=== PATIENT | male | born 1985 | race Caucasian/White ===

== ENCOUNTER → 2023-09-07 06:35 | Outpatient (REF) | payer OTHER, SELFPAY | LOC: MRI 3T 06:35 | PROVIDERS: ATTENDING PHYSICIAN Orthopaedic Surgery; FAMILY PHYSICIAN Internal Medicine | DX: M25.522 Pain in left elbow (principal) | CPT/HCPCS: 73221 ==

== ENCOUNTER 2024-05-05 06:18 | Inpatient (IN) | payer OTHER, SELFPAY ==
[2024-05-05] VITALS (21 sets, daily range): BP systolic 122–151; BP diastolic 62–100; BMI 34.9; BMI 35.0
--- NOTE | 2024-05-05 02:26 | ED.GENMED ---
History of Present Illness
General
Chief Complaint: Weakness
Source: patient and family
Exam Limitations: none
Time Seen by Provider: 05/05/24 02:23
History of Present Illness
History of Present Illness:
Pleasant 39-year-old male presents to the emergency department with vomiting and dyspnea. Patient awakened after his 39th birthday alliance party celebration feeling like the room was spinning. He does have body aches and weakness. Patient has been
training for a bodybuilding event lately. According to his training logs, he has been burning 'about 1000 josie/h 'recently. Patient has been celebrating for his birthday as well. Tonight he developed nausea and vomiting and could not keep anything
down. Denies fever but does report some chills. Denies chest pain or shortness of breath.
Past History
Past History
ED Past Medical History: None
ED Past Surgical History: None
Social History
Tobacco: Non-smoker
Alcohol: None
Drug: None
Living: with family
Phy Exam
General Physical Exam
General Presentation: moderate distress
General age: appears stated age
General Skin: warm and diaphoretic
General Habitus: normal
General Mental: alert and usual mental status
General Hydration: appears well hydrated
Cardiovascular Exam
Cardiovascular Exam: regular rate/rhythm and no edema
Pulmonary Exam
Pulmonary Exam: lungs clear, no respiratory distress, no rales, chest non tender, no crackles, no rhonchi, no stridor, no wheezing and no cough
Neurological Exam
Neurological Exam: alert and oriented x3
Musculoskeletal Exam
Musculoskeletal Exam: full ROM, no edema and neuro vasc intact
Skin Exam
Skin Exam: normal color and diaphoresis
Course
Orders/Labs/Results
Orders:
Orders
05/05/24 02:21
Ondansetron Injectable [Zofran] 4 mg .ROUTE .[facility]
05/05/24 02:23
Urinalysis Reflex To Culture Urgent
0.9% Sodium Chloride 1000 ml [Nss] 1,000 ml IV BOLUS
05/05/24 02:29
Ondansetron Injectable [Zofran] 4 mg IV NOW STA
05/05/24 02:33
CT Head W/o Iv Contrast Urgent
Comment:
Reason For Exam: confusion
Drug Screen, Urine [Urine Drug Abuse Screen] Urgent
05/05/24 02:35
Acetaminophen Urgent
Alcohol Urgent
COVID-19 Antigen Urgent
Source: Nasal Swab
Complete Blood Count/With Diff Urgent
Comprehensive Metabolic Panel Urgent
Creatine Phosphokinase Urgent
Comment: ADD ON
Lactic Acid Urgent
Lipase Urgent
PTT Urgent
Prothrombin Time Urgent
Salicylate Urgent
Troponin I Urgent
Influenza A+B Rapid Molecular Urgent
JAN Source: Nasal Swab
Specimen Description:
05/05/24 03:02
Diphenhydramine [Benadryl] 12.5 mg IV NOW STA
Metoclopramide [Reglan] 10 mg IV NOW STA
05/05/24 03:36
Add On- LAB Urgent
Tests Added?: cpk
05/05/24 03:44
0.9% Sodium Chloride 1000 ml [Nss] 1,000 ml IV BOLUS
05/05/24 03:45
0.9% Sodium Chloride 1000 ml [Nss] 1,000 ml IV 1,000 mls/hr
05/05/24 04:24
Acetaminophen 1000MG/100Ml [Ofirmev] 1,000 mg in 100 ml IV ONCE
Acetaminophen IV Indication:: ED Narcotic Naive Pt-ONCE
05/05/24 05:10
Lactate Level [Lactic Acid] Urgent
Comment: .
05/05/24 05:15
0.9% Sodium Chloride 1000 ml [Nss] 1,000 ml IV 100 mls/hr
Abnormal Lab Results
05/05/24
02:35
RBC 4.67 L 10^6/uL
(4.70-6.10)
MCH 31.3 H pg
(27.0-31.0)
MPV 10.8 H fL
(7.4-10.4)
Absolute Lymphs (auto) 3.7 H 10^3/uL
(1.2-3.4)
Absolute Monos (auto) 0.9 H 10^3/uL
(0.1-0.6)
Neutrophils % 37.8 L %
(42.2-75.2)
Monocytes % 11.4 H %
(1.7-9.3)
Potassium 3.2 L mmol/L
(3.5-5.1)
Chloride 109 H mmol/L
(98-107)
Carbon Dioxide 18 L mmol/L
(22-30)
BUN 23 H mg/dl
(9-20)
Glucose 150 H mg/dl
(70-99)
Lactic Acid 5.0 H* mmol/L
(0.7-2.0)
Creatine Kinase 580 H U/L
(55-170)
Salicylates < 1.0 L mg/dl
(2.0-20.0)
Acetaminophen < 10 L ug/ml
(10-30)
05/05/24 02:35
05/05/24 02:35
Vital Signs
Initial and Last Documented VS:
Initial Vital Signs
Temp Pulse Resp BP Pulse Ox
97.2 F 64 16 135/83 99
05/05/24 02:24 05/05/24 02:24 05/05/24 02:24 05/05/24 02:24 05/05/24 02:24
Last Documented Vital Signs
Temp Pulse Resp BP Pulse Ox
97.2 F 57 20 145/75 97
05/05/24 02:24 05/05/24 03:27 05/05/24 03:27 05/05/24 03:27 05/05/24 03:27
*Radiology
Radiology exam reviewed: radiology read reviewed
*Pulse Oximetry
Patient hypoxic: no
*EKG
Interpreted by ED Provider?: Yes
EKG Intrepretation Date: 05/05/24
Interpretation: normal
Heart Rate: 50
Rhythm: sinus
[place]: normal axis
Interval: normal interval
QRS Pattern: normal QRS and right bundle branch block
*Fur Remodeler Interpretation
Rate: normal
Interpretation: normal
Heart Rate: 50
*Critical Care Note
Total Time (30-74mins, 75-104mins- exclusive of procedures): Not Applicable
ED Attending Note
-
Portions of this chart may have been created with voice recognition software.� Occasional wrong word or��sound alike� substitutions may have occurred due to the inherent limitations of voice recognition software.
Discharge Plan
Departure
Patient Disposition: Admit
Date of Disposition: 05/05/24
Time of Disposition: 05:16
Admit to: Telemetry
Presentation/result/management discussed w/ accepting MD/DO: Hospitalist
Discharge Problem:
Rhabdomyolysis, Nausea & vomiting, Acute dehydration
Prescriptions:
No Action
Prilosec OTC
20 mg PO DAILY
Referrals:
[facility], [Other]
UNKNOWN - PT DOES,NOT KNOW [Family Provider] -
Interventions
Interventions:
*Risk Screen - Suicide Last Done: 05/05/24 02:24
*General Assessment Last Done: 05/05/24 02:24
*Neglect/Abuse Screening Last Done: 05/05/24 02:24
ED- Fall Risk Assessment Last Done: 05/05/24 03:27
*ED COVID-19 Vaccine History Last Done: 05/05/24 02:24
ED- Cardiac Assessment Last Done: 05/05/24 03:27
ED- Neurological Assessment Last Done: 05/05/24 03:27
ED- Pulmonary Assessment Last Done: 05/05/24 03:27
Discharge Date and Time
Print Language: GREEK
[2024-05-05] MEDS: ZOFRAN 4 MG IV (02:30)
[2024-05-05] MEDS: NSS 1000 IV ×3 (02:31→05:12)
[2024-05-05 02:50] LABS: % Basophils 0.4 % (0-2); % Eosinophils 2.5 % (0-6); % Immature Granulocytes 0.4 % (0-0.5); % Lymphocytes 47.5 % (20.5-51.1); % Monocytes 11.4 % (1.7-9.3); % Neutrophils 37.8 % (42.2-75.2); Absolute Eosinophils 0.2 10^3/uL (0-0.7); Absolute Lymphocytes 3.7 10^3/uL (1.2-3.4); Absolute Monocytes 0.9 10^3/uL (0.1-0.6); Absolute Neutrophils 2.9 10^3/uL (1.4-6.5); Hemoglobin 14.6 g/dL (13.0-18.0); Mean Corp Hgb Conc. 36.5 g/dL (33.0-37.0); Mean Corpuscular Hgb 31.3 pg (27.0-31.0); Mean Corpuscular Volume 85.7 fL (80.0-94.0); Mean Platelet Volume 10.8 fL (7.4-10.4); Nucleated Red Blood Cells % 0 % (-); Platelet Count 201 10^3/uL (130-400); Red Blood Cell Count 4.67 10^6/uL (4.70-6.10); Red Cell Dist. Width 11.8 % (11.5-14.5); White Blood Cell Count 7.7 10^3/uL (4.8-10.8)
[2024-05-05 03:06] LABS: ALT (SGPT) 36 U/L (0-50); AST (SGOT) 43 U/L (17-59); Acetaminophen < 10 ug/ml (10-30); Alkaline Phosphatase 89 U/L (38-126); Blood Urea Nitrogen 23 mg/dl (9-20); Calcium 9.7 mg/dl (8.4-10.2); Carbon Dioxide 18 mmol/L (22-30); Chloride 109 mmol/L (98-107); Estimated Creatinine Clearance 115 ml/min; Glucose 150 mg/dl (70-99); Lipase 105 U/L (23-300); Potassium 3.2 mmol/L (3.5-5.1); Salicylate < 1.0 mg/dl (2.0-20.0); Sodium 142 mmol/L (135-145); Total Bilirubin 0.3 mg/dl (0.2-1.3); Total Protein 6.7 g/dl (6.3-8.2); eGFR > 60.00
[2024-05-05] MEDS: REGLAN 10 MG IV (03:08)
[2024-05-05] MEDS: BENADRYL 12.5 MG IV (03:08)
[2024-05-05 03:18] LABS: Troponin I < 0.012 ng/ml
[2024-05-05 03:29] LABS: Alcohol None Detected
[2024-05-05 03:31] LABS: COVID-19 Antigen Negative (Negative)
[2024-05-05 03:45] LABS: PT 11.4 Sec (11.4-14.6)
[2024-05-05 03:47] LABS: APTT 23.4 Sec (23.4-35.0)
[2024-05-05 04:09] LABS: Creatine Phosphokinase 580 U/L (55-170)
[2024-05-05] MEDS: OFIRMEV 100 IV (04:28)
[2024-05-05 05:32] LABS: Lactic Acid 1.7 mmol/L (0.7-2.0)
--- NOTE | 2024-05-05 06:06 | HPS.HSE ---
Family Physician
-
Family Physician: NOT KNOW UNKNOWN - PT DOES
Chief Complaint
-
Dizziness, N/V
History of Present Illness
Patient is a 39y M with PMH significant for GERD who presents to ED complaining of dizziness with N/V. History obtained from patient and his family at the bedside. 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 This is not
new and has been his typical routine for over a year.
Last PM he went out to celebrate his 39th birthday. He had several beers. No hard alcohol. He was not overtly intoxicated according to his and they returned home, opened presents and eventually went to bed with patient feeling fairly well at
that time.
Patient then woke around 1AM with room spinning sensation. He broke into a cold sweat and had multiple episodes of non-bloody emesis. His symptoms did not improve and patient was brought to the ED for further evaluation.
Patient states that he has not opened his eye in hours as that makes his symptoms worse. He describes a room spinning sensation with eyes open with severe nausea. He states that he has been 'leaning to left' since waking at 1 AM.
Medical History
Past Medical History
Past Medical History: Reports Other
Additional Past Medical History:
GERD
Past Surgical History: Reports Other
Additional Past Surgical History:
Pilonidal Cyst
Right ACL Repair
Left Biceps Tendon Repair
T&A
Social History
Tobacco: Non-smoker
Alcohol: Occasional
Drug: None
Personal:
Living: With Family
Family History
Family History: Not pertinent
Allergies / Home Medications
Allergies reflects when Allergies were last updated in [facility].
Home Medications with original date entered in [facility]
Allergy/Medication List:
Allergies
Allergy/AdvReac Type Severity Reaction Status Date / Time
No Known Allergies Allergy Unverified 05/05/24 04:40
Home Medications
Prilosec OTC 20 mg PO DAILY 05/05/24
Review of Systems
-
History Source: Patient
A 12 point ROS was completed and negative except as noted: Yes
Constitutional: Reports Fatigue; Denies Fever or Chills
EENT: Denies Sore Throat
Respiratory: Denies Cough or Trouble Breathing
Cardiac: Reports Diaphoresis; Denies Chest Pain or Palpitations
Abdomen/GI: Reports Nausea and Vomiting; Denies Abdominal Pain or Diarrhea
: Denies Dysuria or Frequency
Musculoskeletal: Denies Joint Pain or Edema
Neurological: Reports Dizzy and Headache
Psych: Denies Depression or Anxiety
Physical Exam
Vital Signs
Vital Signs
Temp Pulse Resp BP Pulse Ox
97.2 F 70 16 122/67 100
05/05/24 02:24 05/05/24 05:30 05/05/24 05:30 05/05/24 05:00 05/05/24 05:30
Physical Exam
General: Other (Ill-appearing 39y M.)
HEENT: Moist mucous membranes, PERRLA and Other (Pos horiztonal nystagmus with eyes open.)
Respiratory: Clear; No Wheezes, Rales or Rhonchi
Cardiac: S1/S2 and Regular Rhythm; No Murmur
GI: Soft, Non Tender, Non Distended and Normal Bowel Sounds
Musculoskeletal: No Clubbing, No Cyanosis and No Edema
Neuro: AO x 3 and Nonfocal/grossly intact
Laboratory Results
-
05/05/24 02:35
05/05/24 02:35
Laboratory Results
PT 11.4 Sec (11.4-14.6) 05/05/24 02:35
INR 0.80 05/05/24 02:35
APTT 23.4 Sec (23.4-35.0) 05/05/24 02:35
Lactic Acid 1.7 mmol/L (0.7-2.0) 05/05/24 05:14
Total Bilirubin 0.3 mg/dl (0.2-1.3) 05/05/24 02:35
AST 43 U/L (17-59) 05/05/24 02:35
ALT 36 U/L (0-50) 05/05/24 02:35
Alkaline Phosphatase 89 U/L (38-126) 05/05/24 02:35
Troponin I < 0.012 ng/ml 05/05/24 02:35
Lipase 105 U/L (23-300) 05/05/24 02:35
Impression/Plan
-
A/P: Patient is a 39y M with PMH significant for GERD who presents to ED complaining of headache, dizziness and N/V.
Intractable Vertigo
- Admit for further evaluation and treatment.
- Woke with dizziness, room spinning, headache and multiple episodes of N/V.
- Symptoms persist and will try dose of Valium now and follow for improvement.
- IVF support, antiemetics, etc.
- PT / Vestibular therapy eval in the AM.
- CT head was unremarkable in the ED. Check MRI in AM.
- Follow for improvement and / or new or worsening symptoms.
- Note that EtOH level was undetectable and seems unlikely that EtOH intake last PM is sole cause of current presentation.
Lactic Acidosis
- Likely secondary to volume losses / intractable N/V.
- Initial lactate level was 5 and now improved to 1.7 after IVFs.
- Continue IVFs.
- Continue to follow labs / lytes for changes.
Abnormal CPK
- Mild rhabdo with CPK elevation @ 580.
- Patient with regular strenuous exercise and weight lifting.
- Need UA to assess for pigment nephropathy - this was ordered.
- Renal function grossly normal.
- Follow for changes in level with IVF support.
- Again, doubt this is directly related to his current presentation.
Hypokalemia
- Likely secondary to GI losses / emesis.
- Add KCl to IVFs and follow for improvement.
GERD
- Stable. Continue PPI.
DVT Prophylaxis: SCDs
Code Status: Full
[2024-05-05] MEDS: VALIUM INJECTION 5 MG IV (06:11)
[2024-05-05 07:30] LABS: Urine Albumin Negative (Neg - Trace); Urine Bilirubin Negative (Negative); Urine Character Clear (Clear); Urine Color Yellow; Urine Glucose Negative (Negative); Urine Ketone Negative (Negative); Urine Leukocyte Negative (Negative); Urine Nitrite Negative (Negative); Urine Occult Blood Negative (Negative); Urine Specific Gravity 1.015 (<1.030); Urine Urobilinogen Negative (Neg - 1+)
[2024-05-05 07:53] LABS: Amphetamines Negative (Negative); Barbiturates Negative (Negative); Benzodiazepines Negative (Negative); Buprenorphine Negative (Negative); Cocaine Negative (Negative); Marijuana Negative (Negative); Methadone Negative (Negative); Methamphetamines Negative (Negative); Opiates Negative (Negative); Phencyclidine Negative (Negative); Tricyclic Antidepressants Negative (Negative)
--- NOTE | 2024-05-05 08:55 | EDRN ---
Patient taken to room 319-1 on stretcher on monitor with NSS infusing.
[2024-05-05] MEDS: TYLENOL 650 MG PO ×3 (09:27→23:19)
[2024-05-05] MEDS: ANTIVERT 25 MG PO (09:27)
[2024-05-05] MEDS: PROTONIX 40 MG PO (09:30)
[2024-05-05] MEDS: NSS with KCL 40 MEQ 1000 IV ×2 (09:33→23:20)
[2024-05-05 10:08] LABS: TSH Reflex To Free T4 1.22 uIU/ml (0.47-4.68)
--- NOTE | 2024-05-05 12:11 | W.PN.UPDATE ---
Addendum entered and electronically signed by Royce Medrano MD 05/05/24 14:18:
[facility] transfer ordered per neuro request
Cardio consultation placed for DIVINA
Addendum entered and electronically signed by Royce Medrano MD 05/05/24 13:43:
MRI brain showing right cerebellar CVA
Neuro consulted
CTA head and neck ordered
Have h/o of VSD - closed when was young -distribution of stroke makes it less likely cardioembolic
Echocardiogram ordered
If CTA/echocardiogram does not explain stroke will require hypercoagulability workup with hematology -of note I have asked patient if patient uses any testosterone/male hormonal inj - patient declined .
Original Note:
Update Note
Progress Note Update
Nonbillable note
Acute vertigo -MRI brain report pending. Maintain on symptomatic care with Antivert. May need dose of Valium/steroid if symptoms get worse. PT/vestibular assessment ordered
Rhabdomyolysis - minimal CPK elevation. From exercise and alcohol use related. maintain on IVF.
Metabolic acidosis - from rhabdo. monitor post IVF
Hypokalemia -replace prn
--- NOTE | 2024-05-05 13:13 | CON.NEURO ---
Neuro Assessment/Plan
Assessment
Acute onset vertigo with abnormal MRI of brain
Patient has suffered an acute ischemic stroke in the right cerebellum. Etiology for this problem is unclear and may include vertebral artery dissection. Alternative etiologies include the patient's distant history of ventricular septal defect or
embolic etiology, less likely. Patient will need to have evaluation for possible coagulopathy.
Plan
Check CTA head and neck
Check transesophageal echocardiogram, appreciate cardiology consultation for same
Check coagulopathy labs
Would elevate patient's level of care due to the risk of edema producing acute changes over the next 72 to 96 hours, necessitating urgent neurosurgical intervention for debulking
Would initiate aspirin 81 mg daily. Would avoid at this time clopidogrel due to risk of hemorrhagic conversion
Will follow
Consultation
Order
Date of Consultation: 05/05/24
Requesting Provider: Hospitalists
Reason for Consult: Intractable vertigo
Subjective/Objective
Subjective Data
Date of Service: May 05, 2024
Right-handed
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 Patient has recently been training for a challenging road race.
Had neck pain and body pain with diaphoresis, urinary urgency, difficulty with walking at the onset of symptoms. Subsequently, the patient developed headache and a continued sense of generalized body pain. The patient reports not having any change
in vision currently.
No changes in medications or supplements recently. No other symptoms. No events similar in the past.
Objective Data
Vital Signs
Temp Pulse Resp BP Pulse Ox
36.7 C 55 20 139/73 100
05/05/24 11:00 05/05/24 11:00 05/05/24 11:00 05/05/24 11:00 05/05/24 11:00
Lab Results
05/05/24 02:35
05/05/24 02:35
PT 11.4 Sec (11.4-14.6) 05/05/24 02:35
INR 0.80 05/05/24 02:35
APTT 23.4 Sec (23.4-35.0) 05/05/24 02:35
Sodium 142 mmol/L (135-145) 05/05/24 02:35
Potassium 3.2 mmol/L (3.5-5.1) L 05/05/24 02:35
BUN 23 mg/dl (9-20) H 05/05/24 02:35
Glucose 150 mg/dl (70-99) H 05/05/24 02:35
Calcium 9.7 mg/dl (8.4-10.2) 05/05/24 02:35
Ur Buprenorphine Negative (Negative) 05/05/24 07:07
Patient Allergies
No Known Allergies Allergy (Unverified 05/05/24 04:40)
CVA Assessment
Onset of Stroke Symptoms
Onset of symptoms known: Yes
Date of onset of symptoms: 05/05/24
Time of onset of symptoms: 01:30
Time pt last seen normal is known: Yes
Date last time pt seen normal: 05/04/24
Time last time pt seen normal: 23:00
NIH Stroke Score
Level of Consciousness: 0 - Alert
LOC Questions: 0-Answers both correctly
LOC Commands: 0-Performs both correctly
Best Horizontal Gaze: 0-Normal
Visual Whitney: 0=Normal, no visual loss
Facial Palsy: 0=Normal, symmetrical
Motor - Right Arm: 0=No drift 10 seconds
Motor - Left Arm: 0=No drift 10 seconds
Motor - Right Le-No drift 5 seconds
Motor - Left Le-No drift 5 seconds
Limb Ataxia: 1-Present in one limb
Sensation: 0-Normal
Best Language: 0-No aphasia
Dysarthria: 0-Normal
Extinction and Inattention: 0-No abnormality
Total Score:: 1
Tenecteplase Contraindications
Inclusion and Exclusion criteria reviewed: Yes
IAT Contraindications: NIHSS < 6
Review of Systems
-
History Source: Patient
All other systems: Reviewed and negative
Constitutional: Other (diaphoresis)
EENT: Decreased Vision (In left eye chronically); Negative Hearing Loss or Swallowing Difficulty
Respiratory: Negative Trouble Breathing
Cardiac: Negative Chest Pain
Abdomen/GI: Negative Incontinence of Stool
Genitourinary: Negative Incontinence
Musculoskeletal: Neck Pain; Negative Back Pain
Neuro: Dizzy (spinning to the left), Headache and Other (photophobia)
Physical Exam
-
General: No Apparent Distress and Appears Stated Age
Eyes: OU Absent Papilledema, Able to visualize OU, Round OU, [place] Conjunctivae and No Ptosis
HEENT: Anicteric and Moist Mucous Membranes
Neck: Full Range of Motion
Respiratory: No Dyspnea
Cardiac: No JVD
GI: Non-distended
Skin: Other (Numerous tattoos)
Extremities: No Clubbing, No Cyanosis and No Edema
Psych: Intact Judgement/Insight
Extended Neurological Exam
Mood & Affect: Mood Unremarkable and Affect Unremarkable
Attention Span & Concentration: Awake, Alert, Interactive and No Difficulty with 2 Step Request
Memory: Unremarkable
Tremor: Hand Tremor Absent and Head Tremor Absent
Speech: Quality Unremarkable and Quantity Unremarkable
Cranial Nerve II: Left Eye: Pupillary Reactivity Unremarkable, Pupillary Size Unremarkable and Visual Whitney Intact
Cranial Nerve II: Right Eye: Pupillary Reactivity Unremarkable, Pupillary Size Unremarkable and Visual Whitney Intact
Cranial Nerves III, IV, : Extraocular Movement: Extraocular Movement Full in all Directions; Negative Nystagmus with Extreme Gaze to Left or Nystagmus with Extreme Gaze to Right
Cranial Nerve VII: Facial Symmetry: Normal Facial Symmetry
Cranial Nerve VIII: Hearing: Unremarkable Hearing to Normal Conversational Volume
Cranial Nerves IX, X: Palate Movement: Palate Elevation Symmetric
Cranial Nerve XI: Shoulder Shrug: Unremarkable
Cranial Nerve XII: Tongue Protusion: Midline
Muscle Strength, Overall: Spontaneously Moves (All extremities)
Muscle Bulk & Tone: Bulk Unremarkable and Tone Unremarkable
Deep Tendon Reflexes: Unremarkable Throughout
Touch Sensation: Unremarkable
Coordination: [id number] Testing Unremarkable; Negative Ygwx-[id number] movements intact bilaterally (Minimal ataxia with right, none with left)
Babinski Sign: Absent Bilaterally
Data Reviewed
-
CT-A: Ordered
CT Head: Report Reviewed
MRI Head: Report Reviewed and Image Reviewed
Labs: Ordered, Pending and Report Reviewed
Lipid Profile: Ordered
Reviewed with: Physician, Nurse, Patient and Family
Old Records: Summarized
Medications
-
Active Medications
Generic Name Dose Route Start Last Admin
Trade Name Freq PRN Reason Stop Dose Admin
Acetaminophen 650 mg 05/05/24 08:53 05/05/24 09:27
Acetaminophen 325 Mg Tablet PO 06/02/24 08:52 650 mg
Q4HPRN PRN Administration
Mild Pain / Temp > 101
Potassium Chloride/Sodium Chloride 40 meq in 1,000 mls @ 150 mls/hr 05/05/24 08:53 05/05/24 09:33
Nss With Kcl 40 Meq IV 1,000 mls
.Q6H40M CARLOS Administration
Meclizine HCl 25 mg 05/05/24 08:53 05/05/24 09:27
Meclizine 25 Mg Tablet PO 06/02/24 08:52 25 mg
Q8HPRN PRN Administration
Dizziness
Ondansetron HCl 4 mg 05/05/24 08:53
Ondansetron 4 Mg/2 Ml Vial IV 06/02/24 08:52
Q6HPRN PRN
nausea and vomiting
Pantoprazole Sodium 40 mg 05/05/24 09:00 05/05/24 09:30
Pantoprazole 40 Mg Delayed Release Tablet PO 06/02/24 08:59 40 mg
DAILY CARLOS Administration
Sodium Chloride 0 flush 05/05/24 09:00
Sodium Chloride 0.9% (Flush) Syringe IV 06/02/24 08:59
PER PROTOCOL CARLOS
Home Medications
�Medication �Instructions �Recorded
Prilosec OTC 20 mg PO DAILY 05/05/24
Past History
Past History
ED Past Medical History: GERD and Other (VSD with spontaneous closure)
ED Past Surgical History: Orthopedic (Left biceps tendon repair 2023, right ACL repair 2007), Tonsilectomy and Other (Pilonidal cyst 2005)
Social History
Tobacco: Non-smoker
Alcohol: None
Drug: None
Living: with family
Family History
Family History: Other (Reviewed and noncontributory)
[2024-05-05] MEDS: COMPAZINE 10 MG PO ×2 (14:12→23:20)
[2024-05-05] MEDS: ASPIR LOW (ENTERIC COATED) 81 MG PO (14:13)
[2024-05-05] MEDS: KLOR-CON 40 MEQ PO (14:16)
--- NOTE | 2024-05-05 16:08 | PTCARENOTE ---
Report given to Geetha from IMU, who is resuming care of pt. Pt wheeled on stretcher with belongings. Family at bedside. Pt stood and pivoted from stretcher to bed. Call barron within reach.
--- NOTE | 2024-05-05 16:27 | PTCARENOTE ---
Received patient on transfer from via bed; patient able to stand and transfer to new bed without difficulty. He continues with headache and light sensitivity that he states is unchanged. NIHSS 0 on arrival; unchanged from prior assessment. Moves
all extremities without difficulty and with equal strength. NSR on monitor, BP 136/77, HR 75, 96% on RA. See worklist for full assessment and interventions. remains at bedside.
--- NOTE | 2024-05-05 18:38 | PTCARENOTE ---
Patient stated his headache is now posterior, not in the front anymore. He still states 3/10, intensity has not changed only the site. Dr Anders notified via TT. Patient given tylenol as ordered.
[2024-05-05] MEDS: NSS with KCL 40 MEQ IV (20:47)
[2024-05-06] VITALS (14 sets, daily range): BP systolic 121–154; BP diastolic 70–100; PULSE 68–95
--- NOTE | 2024-05-06 01:24 | PTCARENOTE ---
Received pt from brittney KRISHNAN. Pt AAOx3, able to make needs known. Pt mother in room to stay overnight with pt. NIH 0, however pt leans to left side when standing. Neurochecks WNL. PERRLA. Pt refused to use urinal at bedside. Standby assist x1 to
bathroom. Pt c/o dizziness with standing, 5/10 posterior headache and light sensitivity. Orthostatic VS taken (See worklist). PRN compazine and tylenol given. Pt resting comfortably in bed at this time. Call barron and belongings within reach. Care
ongoing.
[2024-05-06 04:43] LABS: Hematocrit 40.7 % (39.0-52.0); Hemoglobin 14.3 g/dL (13.0-18.0); Mean Corp Hgb Conc. 35.1 g/dL (33.0-37.0); Mean Corpuscular Hgb 31.2 pg (27.0-31.0); Mean Corpuscular Volume 88.7 fL (80.0-94.0); Platelet Count 168 10^3/uL (130-400); Red Blood Cell Count 4.59 10^6/uL (4.70-6.10); White Blood Cell Count 8.2 10^3/uL (4.8-10.8)
[2024-05-06] MEDS: TYLENOL 650 MG PO ×3 (04:46→19:55)
[2024-05-06 05:16] LABS: Blood Urea Nitrogen 14 mg/dl (9-20); Calcium 9.3 mg/dl (8.4-10.2); Carbon Dioxide 26 mmol/L (22-30); Chloride 109 mmol/L (98-107); Creatine Phosphokinase 242 U/L (55-170); Estimated Creatinine Clearance > 125 ml/min; Glucose 99 mg/dl (70-99); HDL Cholesterol 64 mg/dl; LDL Cholesterol, Calculated 61 mg/dl; Potassium 4.4 mmol/L (3.5-5.1); Sodium 139 mmol/L (135-145); Total Cholesterol 147 mg/dl (50-199); Triglyceride 110 mg/dl (10-149); Very Low Density Lipoprotein 22 mg/dl (0-30); eGFR > 60.00
--- NOTE | 2024-05-06 07:48 | PTCARENOTE ---
Assumed care of patient this morning. Pt woken up from sleep. NIH 0. Pt reports still feels dizzy and has a slight headache to the back of his head.
Pt sent to medical laboratory technician with 2 family members.
Assessment, care and VS as charted.
--- NOTE | 2024-05-06 08:28 | CON.CAR ---
Addendum entered and electronically signed by Remington Montoya MD 05/06/24 09:07:
I saw and examined the patient.
The [facility]'s note was reviewed and I agree with the note.
Comment:
39-year-old male with history of childhood VSD with spontaneous closure who presents to the emergency department with dizziness, found to have an acute ischemic stroke in the right cerebellum. He was seen by neurology who felt that the differential
diagnosis included vertebral artery dissection or less likely embolic etiology. Cardiology is consulted for consideration of a DIVINA for further stroke evaluation. Patient is still complaining of a headache but otherwise has no neurodeficits at this
time. Physical exam reveals a well-appearing male with regular rate and rhythm, no murmurs/rubs/gallops, lungs are clear to auscultation bilaterally, he has no lower extremity edema. Lab work reveals LDL 61, creatinine 0.9, normal TSH. ECG with
sinus bradycardia and an incomplete right bundle branch block. For his acute ischemic stroke, we will perform a DIVIAN to look for embolic source. He should be monitored on telemetry while here to look for any atrial fibrillation. If his workup is
negative, we will place an ILR for further monitoring prior to his discharge. Follow-up CTA head/neck looking for vertebral artery dissection.
Original Note:
Consultation
Consultation Request
Date/Time Consultation Requested: 05/05/2024 14:15
Date/Time Consultation Performed: 05/06/2024 07:45
Requesting Provider: Dr Medrano
Performing Provider: DAO Castrejon for Dr. Montoya
Reason for Consultation: CVA
Medical History
-
Chief Complaint: Dizziness
History of Present Illness:
Eloy Karimi Is a 39-year-old male with a past medical history of VSD with spontaneous closure who presented to the emergency department with a chief complaint of dizziness. He endorsed the room spinning. It was so significant he had difficulty
with ambulation. He then developed a headache. He then developed nausea and vomiting. He also became short of breath. MRI showed acute to subacute infarction involving the posterior medial right cerebellar hemisphere. Cardiology was consulted
for evaluation.
He has been strenuously exercising training for a challenging road race. Lactate 5.0 on admission. CK 580. EKG sinus bradycardia with incomplete right bundle branch block.
Past Medical History
Past Medical History: GERD and Other (VSD with spontaneous closure)
Past Surgical History: Orthopedic and Tonsilectomy
Social History
Tobacco: Non-Smoker
Alcohol: Occasional
Drug: None
Personal:
Living: With Family
Employment: Employed (Owns a gym)
Family History
Family History: Reviewed & Not Pertinent (Denies early CAD, SCD, and CVA.)
Allergies / Home Medications
Allergy/AdvReac Type Severity Reaction Status Date / Time
No Known Allergies Allergy Unverified 05/05/24 04:40
�Medication �Instructions �Recorded �Confirmed �Type
Prilosec OTC 20 mg PO DAILY 05/05/24 05/05/24 History
Review of Systems
-
History Source: Patient
All other systems: Negative unless noted
Constitutional: Fatigue
EENT: No Symptoms
Respiratory: No Symptoms
Cardiac: No Symptoms
Abdomen/GI: No Symptoms
: No Symptoms
Musculoskeletal: No Symptoms
Skin: No Symptoms
Neurological: Headache
Endocrine: No Symptoms
Hematologic/Lymphatic: No Symptoms
Physical Exam
Vital Signs
Temp Pulse Resp BP Pulse Ox
99.5 F 58 16 133/78 97
05/06/24 00:22 05/06/24 06:15 05/06/24 06:15 05/06/24 06:00 05/06/24 06:15
Lab Results
05/06/24 04:33
05/06/24 04:33
Troponin I < 0.012 ng/ml 05/05/24 02:35
Physical Exam
General: Well Developed, Well Nourished, No Apparent Distress and Comfortable
HEENT: Normocephalic, Anicteric and Moist Mucous Membranes
Respiratory: Clear and Non Labored Respirations
Cardiac: S1/S2 and Regular Rhythm
Breast: Deferred by me
GI: Soft, Non Tender, Non Distended and Normal Bowel Sounds
Rectal: Deferred by Provider
Musculoskeletal: No Clubbing, No Cyanosis and No Edema
Skin: Warm and Dry
Neuro: AO x 3
Hematologic/Lymphatic: No Lymphadenopathy
Psych: Calm
Impression / Plan
-
IMPRESSION/PLAN: 39M with VSD status post spontaneous closure presenting with acute onset headache, dizziness, nausea/vomiting found to have CVA
CVA - posteromedial right cerebellar hemisphere
-Still with headache
-LDL 61 this morning, Hgba1c pending
-CTA of head and neck planned to rule out vertebral artery dissection
-DIVINA today with bubbles, consider ILR
Lactic acidosis, resolved
Elevated CK, improved
VSD status post spontaneous closure
iRBBB, chronicity unknown
Data Reviewed
-
EKG: Report Reviewed by me
CT Scan: Report Reviewed by me
MRI: Report Reviewed by me
Labs: Labs Reviewed by me
Old Records: Reviewed
--- NOTE | 2024-05-06 08:48 | W.PN.HOSP.TC ---
Today's Communication/Plan
-
see bold
Assessment / Plan
Assessment / Plan
39y M with PMH significant for GERD who presents to ED complaining of headache, dizziness and N/V.
#Acute ischemic stroke in the right cerebellum
Appreciate neurology input, recommends aspirin 81 mg daily. Avoid Plavix due to risk of harm to conversion
LDL at goal 61, hypercoagulable workup pending, Head CTA neg for dissection
Appreciate cardiology input, 05/06 DIVINA is negative for embolic source, residual VSD is not large enough to cause an embolic stroke
PT/OT recommends acute rehab -physiatry consulted
Follow-up with cardiology in the office for loop recorder
Intractable Vertigo
- Due to cerebellar stroke, provide supportive care
Lactic Acidosis
- Resolved with IV fluids
Abnormal CPK/acute mild rhabdomyolysis from dehydration
- Improving with IV fluids
Hypokalemia
- Likely secondary to GI losses / emesis.
- Repleted and resolved
GERD
- Stable. Continue PPI.
DVT Prophylaxis: Subcu Lovenox
Code Status: Full
Total time spent to see the patient on the floor, examine the patient, review data and lab results, discuss treatment plan with patient, nursing staff around 45 minutes.
Physical Exam
General: No acute distress
HEENT: Normocephalic, Atraumatic, EOMI, MMM
Respiratory: Clear to Auscultation bilaterally
Cardiac: Normal S1/S2, Regular Rate and Rhythm
GI: Soft, Nontender, Nondistended, Normal Bowel Sounds
Extremities: No Clubbing, Cyanosis, or Edema
Neuro: Nonfocal/Grossly Intact
Psych: Calm, Cooperative
Derm: No Visible lesions
Anticipated Discharge: Within 24 hours
Subjective/Interval History
-
Date of Service: May 06, 2024
Patient continues to feel headache, 3 out of 10 in intensity. Associated symptoms include nausea, photophobia, intermittent lightheadedness. No fever, no vomiting.
Objective Data
-
Labs:
Laboratory Results
05/06/24
04:33
WBC 8.2
Hgb 14.3
Hct 40.7
Plt Count 168
Sodium 139
Potassium 4.4 D
Chloride 109 H
Carbon Dioxide 26
BUN 14
Creatinine 0.9
Glucose 99
Calcium 9.3
Vital Signs:
Vital Signs
Temp Pulse Resp BP Pulse Ox
99.5 F 58 16 133/78 97
05/06/24 00:22 05/06/24 06:15 05/06/24 06:15 05/06/24 06:00 05/06/24 06:15
I&O
05/05/24 05/06/24 05/07/24
06:59 06:59 06:59
Intake Total 1999 2920 / 2920
Balance 1999 2920 / 2920
[2024-05-06 09:33] LABS: Glycohemoglobin (HgbA1c) 5.1 % (4.0-5.6)
[2024-05-06] MEDS: NSS with KCL 40 MEQ IV (10:27)
[2024-05-06] MEDS: ASPIR LOW (ENTERIC COATED) 81 MG PO (10:28)
[2024-05-06] MEDS: PROTONIX 40 MG PO (10:28)
--- NOTE | 2024-05-06 10:51 | W.PN.NEURO.1 ---
Today's Communication / Plan
-
CTA and if negative for dissection then loop recorder.
outpatient follow up for hypercoag workup
possible discharge tomorrow
Neuro Assessment/Plan
Assessment
Acute onset vertigo with abnormal MRI of brain
Patient has suffered an acute ischemic stroke in the right cerebellum. Etiology for this problem is unclear and may include vertebral artery dissection. Alternative etiologies include the patient's distant history of ventricular septal defect or
embolic etiology, less likely. Patient will need to have evaluation for possible coagulopathy.
Plan
Check CTA head and neck for dissection
DIVINA neg, if CTA also negative would proceed with ILR
Check coagulopathy labs VLADIMIR, AT3, Cardiolipin, protein C, S, prothrombin gene mutation, homocysteine.
with posterior fossa stroke discussed with patient and family symptoms of hydrocephalus including double vision, vomiting +/- nausea
Agree ASA 81.
no need for statin, LDL 61, HDL 64 doubt atherosclerosis.
Will follow
Subjective/Objective
Subjective Data
Date of Service: May 06, 2024
he reports substantial symptomatic improvement in dizziness, headache, balance. ambulated with therapy using rolling walker
Had DIVINA today, possible small VSD, no embolic source found
Objective Data
Vital Signs
Temp Pulse Resp BP Pulse Ox
37.5 C 58 16 133/78 97
05/06/24 00:22 05/06/24 06:15 05/06/24 06:15 05/06/24 06:00 05/06/24 06:15
Lab Results
05/06/24 04:33
05/06/24 04:33
PT 11.4 Sec (11.4-14.6) 05/05/24 02:35
INR 0.80 05/05/24 02:35
APTT 23.4 Sec (23.4-35.0) 05/05/24 02:35
Sodium 139 mmol/L (135-145) 05/06/24 04:33
Potassium 4.4 mmol/L (3.5-5.1) D 05/06/24 04:33
BUN 14 mg/dl (9-20) 05/06/24 04:33
Glucose 99 mg/dl (70-99) 05/06/24 04:33
Calcium 9.3 mg/dl (8.4-10.2) 05/06/24 04:33
LDL Cholesterol, Calc 61 mg/dl 05/06/24 04:33
Ur Buprenorphine Negative (Negative) 05/05/24 07:07
Patient Allergies
No Known Allergies Allergy (Unverified 05/05/24 04:40)
Physical Exam
-
AAOx3, speech clear
face symmetric
full strength b/l UE/LE
--- NOTE | 2024-05-06 12:02 | CM ---
Patient with Dx stroke, vertigo. DIVINA today. Order for CT Head & Neck Angio. PT recommends acute rehab. OT notes pending. Physiatry Eval pending.
Met with patient and , with parents and brother also in room;
the patient resides with his , 2 children, ages 8 & 4 and their dog in a 2 story house with 3 [address].
The patient is active, works out and owns a local gym.
He has no DME, prior VN.
PCP - Kenneth Grier
Pharmacy - [facility] Mary Beth Wren, [place]
Asked patient how he thought he did with PT/OT and what he is hoping for in regard to rehab at discharge, and mother answered stating patient wants to go to [place]. Agreed to contact Surendra.
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 Referral placed in [facility].
Plan follow up after seen by Physiatry.
--- NOTE | 2024-05-06 12:14 | CM ---
Patient with Dx stroke, vertigo. DIVINA today. Order for CT Head & Neck Angio. PT recommends acute rehab. OT notes pending. Physiatry Eval pending.
Met with patient and , with parents and brother also in room;
the patient resides with his , 2 children, ages 8 & 4 and their dog in a 2 story house with 3 [address].
He has been independent in ADLs and ambulation.
The patient is active, works out and owns a local gym.
He has no DME, prior VN.
PCP - Kenneth Grier
Pharmacy - [facility] [address], [place]
Asked patient how he thought he did with PT/OT and what he is hoping for in regard to rehab at discharge, and mother answered stating patient wants to go to [place]. Agreed to contact [place].
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 Referral placed in [facility].
Plan follow up after seen by Physiatry.
[2024-05-06] MEDS: COMPAZINE 10 MG PO ×2 (13:11→19:55)
--- NOTE | 2024-05-06 14:32 | CON.MD ---
Consultation - Medical
-
Referring Provider:�Dr. Royce Medrano
Chief Complaint:�Stroke
�
History of Present Illness: 39-year-old right-handed male with PMH (as below) presented to [facility] on 05/05/2024 with dizziness nausea and vomiting. Enough for his 39th birthday had some alcohol. Woke up in the morning with severe
dizziness nausea vomiting cold sweat with leaning to the left. Found to have a right cerebellar infarct with lactic acidosis and abnormal CPK. Has a history of a ventral septal defect that was closed as a child. Echocardiogram on 05/06/2024 with
an EF 60 to 65% with possibly a very small residual perimembranous VSD with no evidence of shunt by color-flow Doppler or agitated saline. Plan by neurology to get a CTA and if negative for dissection then a loop recorder placed.
�
Past Medical History:�GERD
Procedure History:�Pilonidal cyst, right ACL repair, left biceps tendon repair, tonsillectomy and adenoidectomy, VSD closure as a child
Family History:�None
�
Social History:�
Functional Level Premorbidly:�Independent with all activities�
Functional Level Currently:�Min assist grooming, toileting. Max assist lower extremity self-care. Min assist toilet transfer.
�
Tobacco:�Denies�
Alcohol:�Occasional
Drug use:�Denies�
�
Lives with:�Spouse and 2 children 8 and 4
24-hour assistance available:�Possibly
Number of floors:�2
# steps to enter:�3
# steps to second floor: Full flight
Potential First floor set up:�
Driving:�Yes
Occupation:�Owns a gym
�
�
Allergies:�
Allergy/AdvReac Type Severity Reaction Status Date / Time
No Known Allergies Allergy Unverified 05/05/24 04:40
�
Review of Systems:�
Constitutional: (x) abNormal _fatigue
Eye: (x) Normal _
Ear/Nose/Throat: (x) Normal _
Respiratory: (x) Normal _
Cardiovascular: (x) Normal _
Gastrointestinal: (x) Normal _
Genitourinary: (x) Normal _
Musculoskeletal: (x) Normal _
Integumentary: (x) Normal _
Neurologic: (x) abNormal _stroke with nausea, headache, vomiting, motor control and balance concerns.
Psychiatric: (x) Normal _
Endocrine: (x) Normal _
Hematologic/Lymphatic: (x) Normal _
Allergic/Immunologic: (x) Normal _
�
Medications:�
Active Current Visit Medication List
Category Date Time Status
Acetaminophen [Tylenol] Med 05/05/24 08:53 Active
650 mg PO Q4HPRN PRN
Aspirin Low Dose EC [Aspir Low (Enteric Coated)] Med 05/06/24 08:00 Active
81 mg PO DAILY
Flush (0.9% Sodium Chloride) [Flush (Nss)] Med 05/05/24 09:00 Active
See Dose Instructions IV PER PROTOCOL
Pantoprazole [Protonix] Med 05/05/24 09:00 Active
40 mg PO DAILY
Prochlorperazine [Compazine] Med 05/05/24 13:58 Active
10 mg PO Q6HPRN PRN
�
Vitals:�
Temp Pulse Resp BP Pulse Ox
98.2 F 76 25 128/81 100
05/06/24 11:34 05/06/24 14:00 05/06/24 14:00 05/06/24 14:00 05/06/24 10:00
Height 5 ft 8 in
Actual Weight 104.326 kg
Body Mass Index (BMI) 35.0
�
Physical Exam:�
General Appearance/Observation: Well-developed, well-nourished male in no apparent distress.�
Pain/Comfort Assessment: Denies�
Mood/Affect: Appropriate�
�
Integumentary/Operative Site:�
�� Pressure Ulcer Evaluation: absent over heels.�
Eyes: Conjunctiva/Lids: normal���� Pupils: pupils equal round and reactive to light and Accommodation�
Ears/Nose/Throat: oral mucosa moist,� throat clear.������������ Lips/Teeth/Gums: normal�
Cardiovascular: Heart: regular, no murmur�
Pulses: dorsalis pedis 2+ bilaterally�
Respiratory: Respiratory Effort/Chest Expansion: normal������� Auscultation: Clear to auscultation bilaterally�
Gastrointestinal: abdomen not tender, no distension, normal abdominal bowel sounds
Genitourinary: No [place]�
Extremities:�Edema: None�Cyanosis: None�Trophic�changes: None
�
Neurology Exam:
Orientation: Alert, Oriented to self, Time, Place�
Memory: Intact immediately and at 3 minutes�
Repetition: Intact
Comprehension: Intact
Two step command: Intact
Cranial Nerves:
�� CNII:�Pupillary light reflex: Intact����Visual Field: Intact
�� CN III, IV, : Extraocular muscles: Intact�
�� CN V:�Facial Sensation�at�Forehead: Intact,�Maxilla: Intact,�Mandible: Intact
�� CN VII:�Facial movement: Symmetric
�� CN VIII:�Hearing: Normal
�� CN IX/X:�Speech & swallow: Normal,�Position of Uvula: Midline
�� CN XI:�Shoulder shrug: Symmetric
�� CN XII:�Tongue protrusion: Midline
Sensory:
�� Light touch: Intact in bilateral upper and lower extremities
�
Reflexes:
�� Biceps: 2+ bilaterally
�� Brachioradialis: 2+ bilaterally
�� Triceps: 2+ bilaterally
�� Patellar: 2+ bilaterally
�� Achilles: 2+ bilaterally
�� Babinski: Down going bilaterally
�� Clonus: None
�� Tammy: Negative bilaterally�
Cerebellar: Dysmetria/Ataxia: Mild difficulty on the right
Musculoskeletal:Motor: (Manual muscle scale 0-5)�
Muscle SA EF WE EE FF FA HF KE DF EHL PF
Right� 5 5 5 5 5 5 5 5 5 5 5
Left 5 5 5 5 5 5 5 5 5 5 5
�
Tone: Normal in all extremities�
Range of Motion: Passively within normal limits in all extremities�
�
Lab Results
Laboratory Data
05/06/24 04:33
05/06/24 04:33
PT 11.4 Sec (11.4-14.6) 05/05/24 02:35
INR 0.80 05/05/24 02:35
APTT 23.4 Sec (23.4-35.0) 05/05/24 02:35
Total Bilirubin 0.3 mg/dl (0.2-1.3) 05/05/24 02:35
AST 43 U/L (17-59) 05/05/24 02:35
ALT 36 U/L (0-50) 05/05/24 02:35
Alkaline Phosphatase 89 U/L (38-126) 05/05/24 02:35
Total Protein 6.7 g/dl (6.3-8.2) 05/05/24 02:35
Albumin 4.0 g/dl (3.5-5.0) 05/05/24 02:35
�
Diagnostic Results:�as per HPI�
�
Assessment
39-year-old right-handed male with past medical history of GERD presented on 05/05/2024 with dizziness, nausea and vomiting with leaning to the left and found to have an acute right cerebellar infarct causing ADL and Ambulatory dysfunction.
Plan�
PM&R�PT/OT to increase independence with ADLs, improve balance, coordination, endurance, strength, mobility, community reintegration, decreased burden of care on others and family education.�
�
CVA: Secondary prophylaxis with aspirin, statin, and blood pressure control (SBP less than 180 and diastolic less than 100 to participate with therapy for ischemic stroke). Continue to monitor neurologic status.�
-Reviewed possibility of joining the young stroke support group at [place]. Reviewed options.
N/V: Zofran
Headache: acetaminophen as needed.�
Bowel: Colace and Senna, PRN bisacodyl.�
Bladder: Time void, PVRs, PRN straight cath.�
GI Prophylaxis: Pantoprazole�
DVT Prophylaxis: Mechanical
Pulmonary: Incentive spirometry�
Obesity: Continue to supervisor counseling and guidance patient about diet adjustments to control obesity. Body habitus and increased force to move body and extremities causes further difficulty with functional tasks.�
Safety: Continue to reinforce assistance with all transfers.�
Code Status:� Full code
Dispo�(date/plan/equipment needs): Home with family care.� Social history reviewed.�
Functional and Medical Goals:�Modified Independent with ADL�s, ambulation, transfers�
Discharge Destination:��Acute rehab
A total of 60 minutes were spent with the patient preparing for the evaluation, obtaining history, performing examination and evaluation, counseling, data review, case management, care coordination, order management specialist, and EMR documentation. Reviewed
stroke, stroke recovery, overall effects, workup and treatment. All questions answered.
�
Summary of recommendations:
-�Discharge Destination:��Acute rehab
- Patient benefit most from an acute inpatient rehab program with physical and Occupational Therapy with eventual transition to outpatient.
CVA: Secondary prophylaxis with aspirin, statin, and blood pressure control (SBP less than 180 and diastolic less than 100 to participate with therapy for ischemic stroke). Continue to monitor neurologic status.�
N/V: Zofran
Headache: acetaminophen as needed.�
�
Thank you for allowing me to care for your patient. Please contact me with any questions or concerns.
[2024-05-06] MEDS: LOVENOX 40 MG SC (17:51)
--- NOTE | 2024-05-06 21:53 | PTCARENOTE ---
Rec'd pt at change of shift, AAOx3, NIH 0. Pt ambulated to bathroom with assistx1 and rw. Pt does appear generally weak and leans slightly to the left when ambulating. C/o mild headache to back of head, states difficult to rate. Tylenol and
compazine given per MAR with improvement. Pt resting comfortably in bed with mother at bedside. Call barron within reach. Pt demonstrates appropriate use of call barron. Care ongoing.
[2024-05-07] VITALS (9 sets, daily range): BP systolic 122–139; BP diastolic 67–84
--- NOTE | 2024-05-07 07:59 | W.PN.HOSP.TC ---
Today's Communication/Plan
-
For loop recorder today, discharge to acute rehab tomorrow
Assessment / Plan
Assessment / Plan
39y M with PMH significant for GERD who presents to ED complaining of headache, dizziness and N/V.
#Acute ischemic stroke in the right cerebellum
Appreciate neurology input, recommends aspirin 81 mg daily. Avoid Plavix due to risk of harm to conversion
LDL at goal 61, hypercoagulable workup pending, Head CTA neg for dissection
Appreciate cardiology input, 05/06 DIVINA is negative for embolic source, residual VSD is not large enough to cause an embolic stroke
PT/OT recommends acute rehab -physiatry consulted
For loop recorder today, plan for discharge to acute rehab tomorrow
Intractable Vertigo
- Due to cerebellar stroke, provide supportive care
Lactic Acidosis
- Resolved with IV fluids
Abnormal CPK/acute mild rhabdomyolysis from dehydration
- Improving with IV fluids
Hypokalemia
- Likely secondary to GI losses / emesis.
- Repleted and resolved
GERD
- Stable. Continue PPI.
DVT Prophylaxis: Subcu Lovenox
Code Status: Full
Total time spent to see the patient on the floor, examine the patient, review data and lab results, discuss treatment plan with patient, nursing staff around 48 minutes.
Physical Exam
General: No acute distress
HEENT: Normocephalic, Atraumatic, EOMI, MMM
Respiratory: Clear to Auscultation bilaterally
Cardiac: Normal S1/S2, Regular Rate and Rhythm
GI: Soft, Nontender, Nondistended, Normal Bowel Sounds
Extremities: No Clubbing, Cyanosis, or Edema
Neuro: Nonfocal/Grossly Intact
Psych: Calm, Cooperative
Derm: No Visible lesions
Anticipated Discharge: Within 24 hours
Subjective/Interval History
-
Date of Service: May 07, 2024
Patient has a mild headache. Continues to report photophobia. No fever, no vomiting.
Objective Data
-
Vital Signs:
Vital Signs
Temp Pulse Resp BP Pulse Ox
97.8 F 55 19 129/84 100
05/07/24 07:54 05/07/24 06:00 05/07/24 06:00 05/07/24 06:00 05/06/24 20:04
I&O
05/06/24 05/07/24 05/08/24
06:59 06:59 06:59
Intake Total 2920 / 2920 960 / 960
Balance 2920 / 2920 960 / 960
[2024-05-07] MEDS: PROTONIX 40 MG PO (08:32)
[2024-05-07] MEDS: ASPIR LOW (ENTERIC COATED) 81 MG PO (08:32)
--- NOTE | 2024-05-07 13:53 | W.PN.CD ---
Today's Communication / Plan
-
- CTA is negative, consider ILR
Impression / Plan
-
IMPRESSION/PLAN: 39M with VSD status post spontaneous closure presenting with acute onset headache, dizziness, nausea/vomiting found to have CVA
CVA
-Brain MRI - 05/05/24: posteromedial right cerebellar hemisphere
-LDL 61, Hgba1c 5.1
-CTA of head and neck 05/07/24 ruled out vertebral artery dissection. no etiology identified.
-DIVINA 05/06/24- Tiny residual VSD- Negative bubbles - no etiology of CVA noted.
-With negative work up for embolic stroke, consider ILR - Afib surveillance.
Lactic acidosis, resolved
Elevated CK, improved
VSD status post spontaneous closure
iRBBB, chronicity unknown
Physical Exam
Vital Signs/Labs
Vital Signs
Temp Pulse Resp BP Pulse Ox
98.3 F 49 23 129/84 100
05/07/24 12:09 05/07/24 10:00 05/07/24 08:37 05/07/24 08:37 05/06/24 20:04
05/06/24 05/07/24 05/08/24
06:59 06:59 06:59
Actual Weight 104.326 kg
05/06/24 04:33
05/06/24 04:33
PT 11.4 Sec (11.4-14.6) 05/05/24 02:35
INR 0.80 05/05/24 02:35
APTT 23.4 Sec (23.4-35.0) 05/05/24 02:35
Triglycerides 110 mg/dl (10-149) 05/06/24 04:33
LDL Cholesterol, Calc 61 mg/dl 05/06/24 04:33
VLDL Cholesterol, Calc 22 mg/dl (0-30) 05/06/24 04:33
HDL Cholesterol 64 mg/dl 05/06/24 04:33
LAB Results
05/05/24
02:35
Troponin I < 0.012
Physical Exam
Constitutional: No acute distress and Comfortable
EENT: Anicteric and Moist mucous membranes
Cardiovascular: Rhythm & rate is regular, Pedal edema is absent and JVD pressure is normal
Respiratory: Respiratory effort normal, Lungs clear to auscul. and Wheeze Absent
GI: Soft, Distention absent, Non tender and Normal bowel sounds
Neuro/Psych: Alert, Oriented and AO x 3
Data Reviewed
-
Date of Service: May 07, 2024
Medical Decision Making: Reviewed Test Results, Test Interpretation and Review of Case with other Provider
EKG: Tracing Personally Visualized and interpreted
Echo: Report Reviewed by me
X-Ray/CT/US/MRI/NUC/PET: Image Personally Visualized and interpreted and Report Reviewed by me
Labs: Labs Reviewed by me
Old Records: Reviewed
--- NOTE | 2024-05-07 13:55 | PTCARENOTE ---
Patient sent to laborer beam house in a stretcher for Linq placement.
--- NOTE | 2024-05-07 14:31 | CM ---
Addendum entered by Yashira Vazquez 05/07/24 15:46:
PT and OT notified of need to have patient seen early tomorrow to assist with [facility] approval; pt anticipated bed available for tomorrow, 05/08/2024.
Original Note:
Case discussed with Aubrie at [facility]; she advised bed was available, however later called and stated bed would not be available until tomorrow. Authorization will be needed; updated therapy notes will also be needed per Porter.
--- NOTE | 2024-05-07 14:31 | ITS.CL.IMPLP ---
Co Op - Implant Loop
Implant Loop
Procedure Report:
Procedure: Insertion of Loop Recorder.�
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
Date of the procedure: 05/07/2024
Procedure Physician: Lenny Orozco MD [facility]
Indication: Cryptogenic stroke
Description of the procedure:
Patient was brought to the holding area after informed consent obtained.
The time out was performed immediately before the procedure.
The left parasternal chest area was prepped and draped in sterile fashion with chlorhexidine prep x 3 times. Lidocaine 1% was injected subcutaneously for local anesthesia. The loop recorder was tunneled and then injected into the subcutaneous
tissue. The tunneling tool was removed leaving the loop recorder in place. The dermis was closed with 4-0 monocryl suture and steristrips and a pressure Tegaderm dressing was placed. There were no immediate complications.
Post procedure, the device was interrogated and showed good detectable P and R waves.
There were no immediate complications.
Device:
Reveal LINQ; Model: LNQ11; Serial #:[id number]
R wave amplitude: 0.45 mV
Final Programming:
��������������� Tachycardia Detection: 146 bpm for 16 beats
��������������� Bradycardia Detection: 30 bpm for 4 beats, Asystole for 3 seconds.
��������������� Atrial fibrillation detection: On
Conclusion:
Successful insertion of loop recorder.
Recommendation:
Routine post-insertable loop care.
[2024-05-07 17:07] LABS: Homocysteine 7 umol/L (0-15)
[2024-05-07] MEDS: LOVENOX 40 MG SC (17:24)
[2024-05-07] MEDS: SENOKOT-S 2 TABLET PO ×2 (17:24→23:07)
[2024-05-07] MEDS: CITROMA 300 ML PO (17:25)
--- NOTE | 2024-05-07 17:37 | PTCARENOTE ---
Pt received as transfer from IMU. AAOx3. NIHSS 0 upon transfer. NSR on vehicle monitor technician. VSS. Pt resting in bed, call barron in reach. Family at bedside.
[2024-05-07 23:11] LABS: Anti-Thrombin III Activity 108 % (76-128)
[2024-05-08 01:33] LABS: ANA, IgG Reflex to HEp-2 None Detected (None Detected)
[2024-05-08 03:51] VITALS: BP 106/79; BP 122/81; BP 131/79; PULSE 52; PULSE 65; PULSE 77
[2024-05-08 07:34] VITALS: BP 117/58
[2024-05-08 07:36] VITALS: BP 117/58; BP 127/72; BP 130/76; PULSE 44; PULSE 54; PULSE 69
[2024-05-08 08:19] VITALS: BP 141/79
--- NOTE | 2024-05-08 08:25 | W.PN.HOSP.TC ---
Today's Communication/Plan
-
Discharge to acute rehab today
Assessment / Plan
Assessment / Plan
39y M with PMH significant for GERD who presents to ED complaining of headache, dizziness and N/V.
#Acute ischemic stroke in the right cerebellum
Appreciate neurology input, recommends aspirin 81 mg daily. Avoid Plavix due to risk of harm to conversion
LDL at goal 61, hypercoagulable workup pending, Head CTA neg for dissection
Appreciate cardiology input, 05/06 DIVINA is negative for embolic source, residual VSD is not large enough to cause an embolic stroke
PT/OT recommends acute rehab -physiatry consulted
S/p Linq loop recorder implant 05/07, plan for discharge to acute rehab today
Intractable Vertigo
- Due to cerebellar stroke, provide supportive care
Constipation
� Resolved on laxatives
Lactic Acidosis
- Resolved with IV fluids
Abnormal CPK/acute mild rhabdomyolysis from dehydration
- Improving with IV fluids
Hypokalemia
- Likely secondary to GI losses / emesis.
- Repleted and resolved
GERD
- Stable. Continue PPI.
DVT Prophylaxis: Subcu Lovenox
Code Status: Full
Physical Exam
General: No acute distress
HEENT: Normocephalic, Atraumatic, EOMI, MMM
Respiratory: Clear to Auscultation bilaterally
Cardiac: Normal S1/S2, Regular Rate and Rhythm
GI: Soft, Nontender, Nondistended, Normal Bowel Sounds
Extremities: No Clubbing, Cyanosis, or Edema
Neuro: Nonfocal/Grossly Intact
Psych: Calm, Cooperative
Derm: No Visible lesions
Anticipated Discharge: Today
Subjective/Interval History
-
Date of Service: May 08, 2024
Patient's headache is improving, equilibrium also improving. Denies nausea, denies vomiting. No fever.
Objective Data
-
Vital Signs:
Vital Signs
Temp Pulse Resp BP Pulse Ox
97.8 F 65 16 106/79 96
05/07/24 23:51 05/08/24 03:51 05/07/24 23:51 05/08/24 03:51 05/07/24 23:51
I&O
05/07/24 05/08/24 05/09/24
06:59 06:59 06:59
Intake Total 960 / 960 480 / 480
Balance 960 / 960 480 / 480
[2024-05-08] MEDS: PROTONIX 40 MG PO (09:42)
[2024-05-08] MEDS: ASPIR LOW (ENTERIC COATED) 81 MG PO (09:42)
[2024-05-08] MEDS: SENOKOT-S 2 TABLET PO (09:42)
[2024-05-08 11:48] VITALS: BP 135/70
[2024-05-08 12:04] LABS: Cardiolipin IgA Antibody <10 APL (<=11); Cardiolipin IgM Antibody <10 MPL (<=12); Cardiolipin Igg Antibody <10 GPL (<=14)
[2024-05-08 12:12] LABS: Protein S Total Antigen 101 % (84-134)
--- NOTE | 2024-05-08 14:09 | CM ---
Eloy is ready for discharge to [facility] today. CM contacted [facility] for acute rehab authorization. Atuhorization provided by Aubrie, [facility] reviewer.
Auth approved #[id number]
05/08 with NRD 05/14/2024 to [phone]
COURTNEY spoke with Eloy who is aware and agreeable to transfer to [facility].
Plan: Transfer to [facility] at [place] today.
Report [phone]
--- NOTE | 2024-05-08 15:34 | PTCARENOTE ---
Pt for transfer to [facility]. Report called to Shruthi KRISHNAN. Pt transferred with all personal belongings and loop recorder equipment. Transferred via to [place], no c/o, condition stable at time of transfer.
[2024-05-08 16:38] LABS: Protein C, Total Antigen >95 % (63-153)
== END 2024-05-08 15:40 | DRG 41 ==
LOC: 4 EAST ACU 06:18
PROVIDERS: Internal Medicine Cardiovascular Disease; ADMITTING PHYSICIAN Hospitalist; ATTENDING PHYSICIAN Family Medicine; CONSULT PHYSICIAN Physical Medicine & Rehabilitation; CONSULT PHYSICIAN Psychiatry & Neurology Neurology; EMERGENCY PHYSICIAN Student in an Organized Health Care Education/Training Program; OTHER PHYSICIAN Student in an Organized Health Care Education/Training Program
PROC: B24BZZ4 Ultrasonography of Heart with Aorta, Transesophageal (ICD-10-PCS; 2024-05-06)
PROC: 0JH632Z Insertion of Monitoring Device into Chest Subcutaneous Tissue and Fascia, Percutaneous Approach (ICD-10-PCS; 2024-05-07)
DX: I63.541 Cerebral infarction due to unspecified occlusion or stenosis of right cerebellar artery (principal); E87.20 Acidosis, unspecified; M62.82 Rhabdomyolysis; Q21.0 Ventricular septal defect; E87.6 Hypokalemia; K21.9 Gastro-esophageal reflux disease without esophagitis; E86.0 Dehydration; Z87.74 Personal history of (corrected) congenital malformations of heart and circulatory system
CPT/HCPCS: 70450; 70496; 70498; 70553; 80048; 80053; 80061; 80143; 80179; 80306; 81003; 81240; 82077; 82550; 83036; 83090; 83605; 83690; 84443; 84484; 85025; 85027; 85300; 85302; 85305; 85610; 85730; 86038; 86147; 87502; 87811; 93005; 93312; 93320; 93325; 96361; 96374; 96375; 97112; 97129; 97163; 97166; 97535; 99285; C1764; Q9967

== ENCOUNTER 2024-05-24 10:35 | Outpatient (RCR) | payer OTHER, SELFPAY | END 2024-05-24 23:59 | disposition home or self-care (01) | LOC: RPT 10:35 | PROVIDERS: ATTENDING PHYSICIAN Physical Medicine & Rehabilitation; FAMILY PHYSICIAN Internal Medicine | DX: I69.398 Other sequelae of cerebral infarction (principal); Z73.6 Limitation of activities due to disability; R26.89 Other abnormalities of gait and mobility | CPT/HCPCS: 97110; 97112; 97163; 97167; 97530; 97535; 97537 ==

== ENCOUNTER 2024-06-10 13:16 | Outpatient (RCR) | payer OTHER, SELFPAY | END 2024-06-10 14:53 | disposition home or self-care (01) | LOC: RPT 13:16 | PROVIDERS: ATTENDING PHYSICIAN Physical Medicine & Rehabilitation; FAMILY PHYSICIAN Internal Medicine | DX: I69.398 Other sequelae of cerebral infarction (principal); Z73.6 Limitation of activities due to disability; I63.9 Cerebral infarction, unspecified; R26.89 Other abnormalities of gait and mobility | CPT/HCPCS: 97110; 97112; 97530 ==